=== PATIENT | female | born 1995 | race Caucasian/White ===

== ENCOUNTER → 2018-07-20 | Outpatient (CLI) | payer BC, OTHER ==
--- NOTE | 2018-07-20 10:09 | RAD ---
MR of the right hip Indication: RIGHT HIP PAIN WORSENING OVER LAST 6 MONTHS, BURNING SENSATIONS RADIATING ANTERIORLY, NKI, NO SX HX, NO PRIORS. Technique: Standard multiplanar sequences are obtained. FINDINGS: Artifact: No significant image degradation. Bones: Well-defined bone lesion at the lateral femoral neck, along the cortical surface, measures 18 mm x 8 mm x 11 mm. Margins are well-defined a slightly irregular. Consists of mostly hyperintense T2 signal, and hypointense T1 signal. The overlying cortex appears intact. There is another hypointense lesion, just below the lesser trochanter and along the anteromedial cortex, likely a fibrous cortical defect. Effusion: No significant effusion Joint: No advanced primary osteoarthritis. Labrum: No evidence of labral tear or para labral cyst Gluteus minimus tendon: Intact Gluteus medius tendon: Intact Hamstring tendon: Intact Iliopsoas tendon: Intact Rectus femoris tendon attachment:Intact Soft tissue:No significant acute findings. IMPRESSION: 1. Subcortical bone lesion at the lateral right femoral neck, uncertain significance, but likely unrelated to clinical presentation. This does not demonstrate the typical morphology of the cyst. Solid lesion such as fibrous dysplasia is possible. Enchondroma considered less likely. Given its uncertain nature, recommend correlation with radiographs and follow-up MRI in about 6 months. 2. No acute findings Electronically signed by: Ashu Cohen MD (07/20/2018 10:05 AM) [facility]
== END | disposition home or self-care (01) ==
LOC: MRI 09:35
PROVIDERS: ATTEND Internal Medicine
DX: M25.851 Other specified joint disorders, right hip (principal)
CPT/HCPCS: 73721

== ENCOUNTER → 2018-12-23 | Outpatient (CLI) | payer BC, OTHER ==
[~2018-12-23] MED LIST: ACET650S PO; AMLO5TAB10 JT; AMLODIPINE; DULO30CA2 JT; DULOXETINE; ETON1VAG VG; FEBU40TA JT; GABA300C18 JT; GABAPENTIN 250 MG/5 ML; HYDR10SY16 JT; HYDR200T5 JT; HYDROXYCHLOROQUINE; LACT1CAP21 PO; LINZESS 290 MCG; LINZESS290 MCG PO; MULT9LIQ10 PO; PANT20TA2 JT; PANTOPRAZOLE; PROM6.257 PO; PYRI60SY PO; SENN176S3 PO; ULORIC
[2018-12-23 14:07] LABS: BASO % 1 % (0-3); EOS # 0.1 x10^3/uL (0.0-0.7); EOS % 2 % (0-3); HEMATOCRIT 42.2 % (36.0-47.0); HEMOGLOBIN 14.6 g/dL (12.0-15.5); LYMPH # 1.6 x10^3/uL (1.0-4.8); LYMPH % 28 % (24-48); MEAN CORPUSCULAR HEMOGLOBIN 31 pg (25-35); MEAN CORPUSCULAR HGB CONC 35 g/dL (31-37); MEAN CORPUSCULAR VOLUME 88 fL (79-100); MONO # 0.5 x10^3/uL (0.0-1.1); MONO % 9 % (0-9); NEUT # 3.6 x10^3uL (1.8-7.7); NEUT % 61 % (31-73); PLATELET COUNT 302 x10^3/uL (140-400); RED BLOOD COUNT 4.78 x10^6/uL (3.50-5.40); RED CELL DISTRIBUTION WIDTH 12.5 % (11.5-14.5); WHITE BLOOD COUNT 5.8 x10^3/uL (4.0-11.0)
--- NOTE | 2018-12-26 10:21 | NUR ---
FAXED PRE-OP LAB(CBC/DIFF) TO 'S OFFICE FOR REVIEW AT 7922 12/26/2018 AN D RECEIVED TRANSMITTAL CONFIRMATION.
== END | disposition home or self-care (01) ==
LOC: SURGPAT 13:35
PROVIDERS: ATTEND Obstetrics & Gynecology
DX: Z01.818 Encounter for other preprocedural examination (principal)
CPT/HCPCS: 36415; 85025

== ENCOUNTER 2018-12-28 06:10 | Observation (INO) | payer BC, OTHER ==
[2018-12-28] VITALS (10 sets, daily range): BP systolic 116–137; BP diastolic 56–77
[~2018-12-28 06:10] MED LIST changes: +AZTREONAM IV Push 1 GM VIAL. IVP PRN; +BUPIVACAINE-EPI 0.25%-1:200000 MPF 30 ML VIAL. ONE; +CLINDAMYCIN 900MG PREMIX 50 ML IV PRN; +ESTROGENS, CONJ VAGINAL CREAM 30GM TUBE. ONE
[2018-12-28 06:44] LABS: U PREG PATIENT NEGATIVE (NEG)
[2018-12-28] MEDS ORDERED: fentaNYL PF VIAL 100 MCG/2 ML VIAL IV PRN ×4 (07:00)
[2018-12-28] MEDS ORDERED: LIDOCAINE 1% PF 2 ML VIAL. ID PRN ×2 (07:00)
[2018-12-28] MEDS ORDERED: PROCHLORPERAZINE 10 MG/2 ML VIAL. IV PRN ×2 (07:00)
[2018-12-28] MEDS ORDERED: IV RINGERS,LACTATED 1000ML 1,000 ML IV SCH (07:00)
[2018-12-28] MEDS ORDERED: MORPHINE SULFATE 2 MG/ML VIAL. IV PRN ×2 (07:00)
[2018-12-28] MEDS ORDERED: HYDROmorphone 2 MG/ML VIAL IV PRN ×2 (07:00)
[2018-12-28] MEDS ORDERED: ONDANSETRON PF 4 MG/2 ML VIAL. IV PRN ×2 (07:00)
[2018-12-28] MEDS: IV RINGERS,LACTATED 1000ML 1,000 ML IV SCH ×2 (07:05→10:22)
[2018-12-28] MEDS ORDERED: ONDANSETRON PF 4 MG/2 ML VIAL. ONE (07:13)
[2018-12-28] MEDS ORDERED: DEXAMETHASONE SOD PHOS 4 MG/ML VIAL ONE (07:13)
[2018-12-28] MEDS ORDERED: PROPOFOL 20 ML IV ONE (07:13)
[2018-12-28] MEDS ORDERED: MIDAZOLAM HCL/PF 2 MG/2 ML VIAL. ONE (07:13)
[2018-12-28] MEDS ORDERED: LIDOCAINE 2% PF 5 ML VIAL. ONE (07:13)
[2018-12-28] MEDS ORDERED: ROCURONIUM 50 MG/5 ML VIAL. ONE ×2 (07:13→08:05)
[2018-12-28] MEDS ORDERED: fentaNYL PF VIAL 100 MCG/2 ML VIAL ONE ×2 (07:13→08:53)
[2018-12-28] MEDS ORDERED: GLYCOPYRROLATE 1 MG/5 ML VIAL. ONE (08:37)
[2018-12-28] MEDS ORDERED: NEOSTIGMINE METHYLSULFATE 5 MG/5 ML SYRINGE. ONE (08:37)
[2018-12-28] MEDS ORDERED: SEVOFLURANE 61 TO 120 MINUTES. IH ONE (09:24)
[2018-12-28] MEDS ORDERED: KETOROLAC 30 MG/ML INJ FOR OR. INJ ONE (09:31)
[2018-12-28] MEDS ORDERED: SIMETHICONE 80 MG TAB.CHEW PO PRN (09:45)
[2018-12-28] MEDS ORDERED: ZOLPIDEM 5 MG TABLET. PO PRN (09:45)
[2018-12-28] MEDS ORDERED: diphenhydrAMINE HCL 25 MG CAPSULE PO PRN (09:45)
[2018-12-28] MEDS ORDERED: diphenhydrAMINE 50 MG/ML VIAL IV PRN (09:45)
[2018-12-28] MEDS ORDERED: LACTULOSE 20 GM/30 ML SOLUTION. PO PRN (09:45)
[2018-12-28] MEDS ORDERED: NALOXONE 0.4 MG/ML VIAL. IV PRN (09:45)
[2018-12-28] MEDS ORDERED: MAGNESIUM HYDROXIDE 2,400 MG/30 ML ORAL.SUSP. PO PRN (09:45)
[2018-12-28] MEDS ORDERED: MAG HYDROX/ALUMINUM HYD/SIMETH 30 ML ORAL.SUSP PO PRN (09:45)
[2018-12-28] MEDS ORDERED: HYDROcodon/APAP 7.5/325MG ORAL 15 ML SOLUTION PO PRN (09:45)
[2018-12-28] MEDS ORDERED: CALCIUM CARBONATE 500 MG TAB.CHEW PO PRN (09:45)
[2018-12-28] MEDS ORDERED: 0.9 % SODIUM CHLORIDE 10 ML DISP.SYRIN. IV PRN (09:45)
--- NOTE | 2018-12-28 09:50 | PDOC ---
BRIEF OPERATIVE NOTE Date: Dec 28, 2018 Pre-Op Diagnosis menorrhagia, DUB Post-Op Diagnosis same Procedure Performed LAVH, bilateral salpingectomy Surgeon Dr. Trinidad Ramey Billboard Mechanic Lencho Gage SA Anesthesiologist Dr. Bergeron Anesthesia Type: General Blood Loss 100cc IV Fluid 800cc Urine Output 100cc Specimens Obtained cervix, uterus, bilateral tubes Findings small uterus, normal bilateral tubes and ovaries, no significant adhesive disease Complications none Operative Note [id number] TRINIDAD RAMEY MD Dec 28, 2018 09:50
[2018-12-28] MEDS: hydrOXYzine 10 MG TABLET JT SCH ×2 (10:00→21:00)
[2018-12-28] MEDS ORDERED: amLODIPine BESYLATE 5 MG TABLET JT SCH (10:00)
[2018-12-28] MEDS ORDERED: FEBUXOSTAT 40 MG TABLET JT SCH (10:00)
[2018-12-28] MEDS ORDERED: LANSOPRAZOLE 30 MG TAB.RAP.DR JT SCH (10:00)
[2018-12-28] MEDS ORDERED: DULoxetine HCL 30 MG CAPSULE.DR PO SCH (10:00)
[2018-12-28] MEDS: PYRIDOSTIGMINE BROMIDE 60 MG TABLET PO SCH ×2 (10:00→20:54)
[2018-12-28] MEDS: GABAPENTIN 250 MG/5 ML ORAL SOLUTION. PO SCH ×2 (10:00→20:54)
[2018-12-28] MEDS: MORPHINE SULFATE 2 MG/ML VIAL. IV PRN ×3 (12:00→15:58)
--- NOTE | 2018-12-28 12:21 | OP ---
DATE OF SURGERY: 12/28/2018 PREOPERATIVE DIAGNOSES: Menorrhagia and dysfunctional uterine bleeding. POSTOPERATIVE DIAGNOSES: Menorrhagia and dysfunctional uterine bleeding. PROCEDURE: Laparoscopic-assisted vaginal hysterectomy, bilateral salpingectomy. SURGEON: Carlos Soni M.D. SHOE CEMENTER: Franics Gage, assembler surgical garment. ANESTHESIOLOGIST: Dr. Bergeron. ANESTHESIA: General. ESTIMATED BLOOD LOSS: 100 mL. URINE OUTPUT: 100 mL clear via Brown catheter. FLUIDS: 800 mL of Crystalloid. SPECIMENS: Cervix, uterus, bilateral tubes. FINDINGS: A small uterus with normal bilateral tubes and ovaries. No significant adhesive disease. DESCRIPTION OF PROCEDURE: This patient was taken to the operating room where general anesthesia was placed. The patient was placed in a dorsal lithotomy position in [facility]. The patient's abdomen and vagina were prepped and draped in the normal sterile fashion and a Brown catheter had been inserted under sterile technique. Upon my arrival, a timeout was performed where everyone agreed on the patient, the allergy, the procedures, the antibiotics, etc., and at this point a bivalve speculum was placed in the patient's vagina. A single tooth tenaculum was used to grasp the anterior lip of the cervix. A 10 mL of 0.25% Marcaine with epinephrine was used to circumferentially inject around the cervix for both hemodissection and hemostatic purposes later. At this point, the ValtchAudibase uterine manipulator was placed through the endocervical os, locked on the single tooth tenaculum and the bivalve speculum was then removed. Top gloves were discarded and changed. Attention was then turned to the abdomen where a small infraumbilical skin incision was made over the existing scar. A curved Temitope was used to dissect through the subcuticular layer to the fascia. The 5 mm Visiport was used to directly enter the abdominal cavity. Opening patient pressure was 4 mmHg. Carbon dioxide gas was used to then appropriately insufflate the abdominal cavity to maintain a pressure of 15 mmHg. The patient was placed in Trendelenburg position with the above findings. The left lower quadrant port was placed under direct visualization after transilluminating the abdominal wall, finding an area clear of any vasculature and placing it under direct visualization. A 4-5 mL of air was placed in the cuff to hold it into place. The scope was then moved to look at the umbilical port. It was then in clear, so 4-5 mL of air was placed in the cuff as well on the trocar. Then the right lower quadrant port was placed under a similar fashion. Once this was done, the right tube and ovary were elevated going above the ovary, below the tube, doing a salpingectomy, cauterizing and cutting with the LigaSure, then crossing the right uteroovarian pedicle, leaving the right ovary per patient request, crossing the right round ligament. Then, we did the exact same thing on the left, elevating the left tube and ovary, going above the ovary, below the tube, doing a salpingectomy, cauterizing and cutting with the LigaSure, crossing the left round ligament and the left uterine ovarian pedicle, again leaving the left ovary per patient request. Then going down and taking a bite just in front of the round ligament and starting that bladder flap and it peeled down very nicely, and then going from the right side, taking another bite and meeting it anteriorly. Once the bladder was down, the uterine vessels were obtained on both sides and using the LigaSure to hug the cervix and stay on the uterus, going down to the level of the uterosacrals bilaterally. We were down very low. Knowing how narrow and tight she was from putting the vaginal instruments in, it was decided to do as much from above as we could. It was completely free and blanched. So, all instruments were removed from the abdomen and attention was turned vaginally. The single tooth and Valtchev were removed. The weighted speculum would not even fit as wide as it was in the vagina, so we used the long Shaji speculum, but just held it in because it was more narrow and then was able to get the [place] in above and on the side. Thyroid Yeni clamps were placed on the anterior and posterior lips of the cervix respectively. A scalpel was used to make a circumferential incision. An open Ray-Kirstin 4 x 4 was used to gently push up the anterior bladder peritoneum. We were down so low, once I was in and could feel around, there was no attachment. The cervix and uterus were actually delivered with no bites vaginally. A sponge stick was used to try to examine any pedicles. There was minimal bleeding. So, I did use a full length 2-0 Vicryl and I was not able to get the top of the bladder flap, but I was able to get just inside and I got the left and right uterosacrals and the posterior peritoneum, closing the peritoneum in a pursestring like fashion. Then, a full length 2-0 Vicryl was used to close the cuff. The left side actually did tear a little bit and there was a left sidewall tear, so a few interrupted stitches were placed there with excellent results and then I put an imbricating stitch over the top of the vagina to pull it back together. The tissue was actually friable and not great due to her connective tissue disease, but we were able to close it and minimal bleeding. The tubes were actually removed above on both sides, manipulating the uterus, but those were both pulled out in total. So, I did a LAVH with bilateral salpingectomy, both normal ovaries were left. So at this point, once everything was closed vaginally, all instruments were removed. Counts below were correct x 2. All gloves were discarded and changed. Attention was turned back above where she was placed back in Trendelenburg. Gas was reinsufflated and it was completely hemostatic. Copious irrigation revealed hemostasis, right and left pericolic gutters were clear, the vaginal cuff was dry. Tisseel was placed over the pedicles with excellent results. The right and left lower quadrant ports, the gas was released from the trocar cuff and they were removed under direct visualization and were hemostatic. Gas was released from the umbilical port, it too then was. The gas was released from the cuff and removed. All three port sites were closed with 4-0 nylon at the skin and injected with local. The patient has been awakened from anesthesia and brought to recovery room in stable condition. CARLOS SONI MD DR: ISABEL/issa JOB#: [id number] / [id number]
[2018-12-28] MEDS: oxyCODONE/APAP 5/325 1 TAB TABLET PO PRN ×3 (17:04→22:41)
--- NOTE | 2018-12-28 17:10 | NUR ---
Nursing Note: As ordered by Dr. Soni, Pt. started J tube duel pump feeding of Promote 1.0 jean at a rate of 45 ml/hr and Pedialyte 60ml/hr.
[2018-12-28] MEDS: ONDANSETRON PF 4 MG/2 ML VIAL. IV PRN (18:48)
--- NOTE | 2018-12-28 21:06 | NUR ---
Patient's mother brought in her home meds and administered them via her J-Tube. As many are not available here they are compounded medications from a special pharmacy. Dr. Soni is aware.
[2018-12-29] MEDS: ONDANSETRON PF 4 MG/2 ML VIAL. IV PRN (01:37)
[2018-12-29 01:43] VITALS: BP 134/78
[2018-12-29] MEDS: HYDROcodone/APAP 5/325MG 1 TAB TABLET PO PRN ×3 (02:51→11:05)
[2018-12-29] MEDS: hydrOXYzine 10 MG TABLET JT SCH (05:40)
[2018-12-29 06:36] VITALS: BP 137/78
[2018-12-29 07:05] LABS: CALCIUM 8.4 mg/dL (8.5-10.1); CREATININE 0.8 mg/dL (0.6-1.0); GFR 89.7
--- NOTE | 2018-12-29 08:17 | PDOC ---
SURGICAL PROGRESS NOTE Subjective Doing well, voiding without catheter, getting JT fluids, tolerating PO hydration, ambulating well Vital Signs Vital Signs Date Time Temp Pulse Resp B/P (MAP) Pulse Ox O2 Delivery O2 Flow Rate FiO2 12/29/18 06:36 97.7 97 137/78 (97) 97 Room Air 97.7 12/29/18 02:51 14 12/28/18 11:07 2 I&O Intake and Output 12/29/18 07:00 Intake Total 2225 ml Output Total 3100 ml Balance -875 ml Intake Oral 1050 ml IV Total 1050 ml Tube Feeding 10 ml Other 115 ml Output Urine Total 3000 ml Estimated Blood Loss 100 ml # Voids 3 PATIENT HAS A FERRO: No General: Alert, Oriented X3, Cooperative, No acute distress HEENT: Atraumatic Heart: Regular rate Abdomen: Soft, No tenderness, Other (all port sites C/D/I) Extremities: No clubbing, No cyanosis, No edema Skin: No rashes, No breakdown Neuro: Normal speech Psych/Mental Status: Mental status NL, Mood NL Labs Laboratory Tests Test 12/28/18 06:35 12/29/18 06:00 Urine Test Negative (NEG) Hematocrit 36.5 % (36.0-47.0) Sodium Level 137 mmol/L (136-145) Potassium Level 4.0 mmol/L (3.5-5.1) Chloride Level 104 mmol/L (98-107) Carbon Dioxide Level 25 mmol/L (21-32) Anion Gap 8 (6-14) Blood Urea Nitrogen 10 mg/dL (7-20) Creatinine 0.8 mg/dL (0.6-1.0) Estimated GFR (Cockcroft-Gault) 89.7 Glucose Level 113 mg/dL (70-99) Calcium Level 8.4 mg/dL (8.5-10.1) Laboratory Tests Test 12/29/18 06:00 Hematocrit 36.5 % (36.0-47.0) Sodium Level 137 mmol/L (136-145) Potassium Level 4.0 mmol/L (3.5-5.1) Chloride Level 104 mmol/L (98-107) Carbon Dioxide Level 25 mmol/L (21-32) Anion Gap 8 (6-14) Blood Urea Nitrogen 10 mg/dL (7-20) Creatinine 0.8 mg/dL (0.6-1.0) Estimated GFR (Cockcroft-Gault) 89.7 Glucose Level 113 mg/dL (70-99) Calcium Level 8.4 mg/dL (8.5-10.1) I have reviewed the following labs, vitals, nursing GI: Other (severe gastroparesis) Musculoskeletal: Other (fibromyalgia and connective tissue disease) 0 Para o Problem List please see list Assessment/Plan POD#1 s/p LAVH/bilateral salpingectomy Routine PO care pt on multiple meds with JT tube, but stable doing well Hydrocodone elixer written and pt has at home NPV x 6 weeks light/limited activity x 2 weeks keep scheduled follow up with me as scheduled d/c to home call or return sooner for any other questions or concerns not limited to but in cluding pain unrelieved with pain meds, increased or unexplained vag bleeding or T>100.4 CARLOS RAMEY MD Dec 29, 2018 08:17
--- NOTE | 2018-12-29 08:18 | PDOC3 ---
Discharge Summary Visit Information Date of Admission: Dec 28, 2018 Date of Discharge: Dec 29, 2018 Final Diagnosis DUB, menorrhagia Brief Hospital Course Allergies Allergies Coded Allergies Type Severity Reaction Last Updated Verified domperidone Allergy Severe Unknown 12/28/18 Yes adhesive tape Allergy Intermediate rash 12/28/18 Yes amoxicillin Allergy Intermediate hives 12/28/18 Yes cefdinir Allergy Intermediate rash 12/28/18 Yes cephalexin Allergy Intermediate hives 12/28/18 Yes ciprofloxacin Allergy Intermediate hives 12/28/18 Yes clavulanic acid Allergy Intermediate Palpitations 12/28/18 Yes erythromycin base Allergy Intermediate 12/28/18 Yes Vital Signs Vital Signs Date Time Temp Pulse Resp B/P (MAP) Pulse Ox O2 Delivery O2 Flow Rate FiO2 12/29/18 06:36 97.7 97 137/78 (97) 97 Room Air 97.7 12/29/18 02:51 14 12/28/18 11:07 2 Lab Results Laboratory Tests Test 12/28/18 06:35 12/29/18 06:00 Urine Test Negative (NEG) Hematocrit 36.5 % (36.0-47.0) Sodium Level 137 mmol/L (136-145) Potassium Level 4.0 mmol/L (3.5-5.1) Chloride Level 104 mmol/L (98-107) Carbon Dioxide Level 25 mmol/L (21-32) Anion Gap 8 (6-14) Blood Urea Nitrogen 10 mg/dL (7-20) Creatinine 0.8 mg/dL (0.6-1.0) Estimated GFR (Cockcroft-Gault) 89.7 Glucose Level 113 mg/dL (70-99) Calcium Level 8.4 mg/dL (8.5-10.1) Laboratory Tests Test 12/29/18 06:00 Hematocrit 36.5 % (36.0-47.0) Sodium Level 137 mmol/L (136-145) Potassium Level 4.0 mmol/L (3.5-5.1) Chloride Level 104 mmol/L (98-107) Carbon Dioxide Level 25 mmol/L (21-32) Anion Gap 8 (6-14) Blood Urea Nitrogen 10 mg/dL (7-20) Creatinine 0.8 mg/dL (0.6-1.0) Estimated GFR (Cockcroft-Gault) 89.7 Glucose Level 113 mg/dL (70-99) Calcium Level 8.4 mg/dL (8.5-10.1) Brief Hospital Course Ms. Martinez is a 23 old female who presented with DUB unresponsive to medical management. She underwent LAVH with bilateral salpingectomy yesterday without complications. She is voiding without catheter, tolerating sips of PO (her baseline with JT tube) and desiring to go home with scant vag spotting Discharge Information Condition at Discharge: Stable Follow Up: Weeks Disposition/Orders: D/C to Home Scheduled Amlodipine Besylate (Amlodipine Besylate) 5 Mg Tablet, 7.5 MG JT DAILY for HTN, (Reported) Entered as Reported by: SOPHIA BLAND on 12/23/181456 Last Taken: Unknown Dose on 12/28/18429 Last Action: Continued on 12/28/18745 by CARLOS RAMEY Duloxetine Hcl (Cymbalta) 30 Mg Capsule.dr, 45 ML JT DAILY for DEPRESSION, #30 Ref 5 (Reported) Entered as Reported by: SOPHIA BLAND on 12/23/181458 Last Taken: Unknown Dose on 12/27/18 Last Action: Continued on 12/28/18745 by CARLOS RAMEY Etonogestrel/Ethinyl Estradiol (Nuvaring Vaginal Ring) 1 Each Vag.ring, 1 EACH VG QMONTH for UTERINE BLEEDING, #3 Ref 3 (Reported) Entered as Reported by: SOPHIA BLAND on 12/23/18 145 Last Action: HELD on 12/28/18745 by CARLOS RAMEY Febuxostat (Uloric) 40 Mg Tablet, 40 ML JT DAILY for URIC ACID LEVELS, #90 Ref 1 (Reported) Entered as Reported by: SOPHIA BLAND on 12/23/18 150 Last Taken: Unknown Dose on 12/27/18 Last Action: Continued on 12/28/18745 by CARLOS RAMEY Gabapentin (Gabapentin ) 300 Mg Capsule, 250 MG JT BID for NEUROGENIC PAIN, (Reported) Entered as Reported by: SOPHIA BLAND on 12/23/18 1502 Last Taken: Unknown Dose on 12/28/180 Last Action: Continued on 12/28/18745 by CARLOS RAMEY Hydroxychloroquine Sulfate (Hydroxychloroquine Sulfate) 200 Mg Tablet, 8 ML JT BID for *, #180 Ref 1 (Reported) Entered as Reported by: SOPHIA BLAND on 12/23/18 1507 Last Taken: Unknown Dose on 12/27/18 Last Action: HELD on 12/28/18745 by CARLOS RAMEY Hydroxyzine Hcl (Hydroxyzine Hcl) 10 Mg/5 Ml Syrup, 7.5 ML JT BID for *, #120 Ref 3 (Reported) Entered as Reported by: SOPHIA BLAND on 12/23/18 1502 Last Taken: Unknown Dose on 12/27/18 Last Action: Converted on 12/28/18745 by CARLOS RAMEY Lactobacillus Rhamnosus Gg (Culturelle) 1 Each Capsule, 1 EACH PO DAILY for DIARRHEA/CONSTIPATION, (Reported) Entered as Reported by: SOPHIA BLAND on 12/23/18 145 Last Taken: Unknown Dose on 12/27/18 Last Action: HELD on 12/28/18745 by CARLOS RAMEY Linaclotide (Linzess) 290 Mcg Capsule, 290 MCG PO DAILY07 for IRRITABLE BOWEL, (Reported) Entered as Reported by: SOPHIA BLAND on 12/23/18 150 Last Taken: Unknown Dose on 12/27/18 Last Action: HELD on 12/28/18745 by CARLOS RAMEY Multivits W-Min/Ferrous Gluc (Centrum Multivit-Mineral Liq) 9 Mg/15 Ml Liquid, 9 MG PO DAILY for SUPPLEMENT, (Reported) Entered as Reported by: SOPHIA BLAND on 12/23/18 145 Last Taken: Unknown Dose on 11/23/18 Last Action: HELD on 12/28/18745 by CARLOS RAMEY Pantoprazole Sodium (Protonix) 20 Mg Tablet.dr, 24.5 ML JT DAILY for REFLUX, (Reported) Entered as Reported by: SOPHIA BLAND on 12/23/18 1504 Last Taken: Unknown Dose on 12/28/18429 Last Action: Converted on 12/28/18745 by CARLOS RAMEY Promethazine Hcl (Promethazine Hcl) 6.25 Mg/5 Ml Syrup, 5 ML PO TID for NAUSEA, #150 (Reported) Entered as Reported by: SOPHIA BLAND on 12/23/18 145 Last Taken: Unknown Dose on 12/28/18429 Last Action: HELD on 12/28/18745 by CARLOS RAMEY Pyridostigmine [place] (Mestinon) 60 Mg/5 Ml Syrup, 60 MG PO BID for *, (Reported) Entered as Reported by: SOPHIA BLAND on 12/23/181453 Last Taken: Unknown Dose on 12/28/18 0430 Last Action: Converted on 12/28/18745 by CARLOS RAMEY Senna [place] Extract (Senna) 176 Mg/5 Ml Syrup, 176 MG PO DAILY for CONSTIPATION, (Reported) Entered as Reported by: SOPHIA BLAND on 12/23/181453 Last Taken: Unknown Dose on 12/27/18 Last Action: HELD on 12/28/18745 by CARLOS RAMEY Scheduled PRN Acetaminophen (Acetaminophen Oral Liquid ) 650 Mg/20.3 Ml Solution, 650 MG PO PRN Q6HRS PRN for PAIN, (Reported) Entered as Reported by: SOPHIA BLAND on 12/23/181453 Last Taken: Unknown Dose on 11/23/18 Last Action: HELD on 12/28/18745 by CARLOS RAMEY Patient Instructions Patient Instructions POD#1 s/p LAVH/bilateral salpingectomy Routine PO care pt on multiple meds with JT tube, but stable doing well Hydrocodone elixer written and pt has at home NPV x 6 weeks light/limited activity x 2 weeks keep scheduled follow up with me as scheduled d/c to home call or return sooner for any other questions or concerns not limited to but including pain unrelieved with pain meds, increased or unexplained vag bleeding or T>100.4 CARLOS RAMEY MD Dec 29, 2018 08:18
[2018-12-29 10:00] VITALS: BP 138/71
[2018-12-29] MEDS ORDERED: HEPARIN PF 500 UNIT/5 ML DISP.SYRIN. IV ONE (21:00)
--- NOTE | 2018-12-30 17:07 | PATHOLOGY ---
[facility] Accession Number: [id number] . 01 Material submitted: . uterus - UTERUS, CERVIX, BILATERAL FALLOPIAN TUBES . 01 Clinical history: . Dysfunctional uterine bleeding . 02 Diagnosis: Uterus and separate detached bilateral fallopian tubes, laparoscopic assisted vaginal hysterectomy with bilateral salpingectomy: - Adenomyosis, uterine corpus, sub-basal, focal. - Stromal decidual change of endometrium with inactive and atrophic endometrial glands, consistent with progesterone effect. - Congestion of bilateral fallopian tubes. LBQ/12/30/2018 . 02 Comment: There is no evidence of endometrial hyperplasia. There is no atypia or evidence of malignancy. (JPM/db; 12/30/2018) . 02 Electronically signed: . Florentino Doherty MD, Pathologist NPI- [id number] . 01 Gross description: . The specimen is received in formalin, labeled "Cherelle Martinez, uterus, cervix, bilateral fallopian tubes" and consists of a 40 g uterus with attached cervix measuring 7.7 x 3.8 x 2.8 cm. Received separately are bilateral fimbriated fallopian tubes measuring 4.0 cm in length and 0.5 cm in diameter and 6.8 cm in length and up to 0.5 cm in diameter. The uterine serosa is pink-alves and smooth with multifocal areas of hemorrhage. The 0.6 cm cervical os is surrounded by hemorrhagic and irregular pink-alves ectocervical mucosa. The anterior paracervical margin is inked black. The specimen is bivalved to reveal a mucoid and corrugated endocervical canal measuring up to 3.3 cm in length. The endometrial cavity is triangular measuring 3.6 cm in length and 2.5 cm in width which is lined by a pink-red endometrium measuring 0.1 cm. The myometrium is pink-alves measuring up to 1.5 cm with no masses or lesions. The bilateral fimbriated fallopian tubes are purple-hennessy and smooth with sectioning each revealing a well-defined central lumens and no gross lesions. Nurse Sane sections are submitted as follows: . A1: Anterior cervix A2: Posterior cervix A3: Anterior endomyometrium A4: Posterior endomyometrium A5: [place] detached fallopian tube A6: Longer detached fallopian tube (SDY; 12/29/2018) SYU/SYU . 02 Pathologist provided ICD-10: N80.0 . 02 CPT . 249015 Specimen Comment: A courtesy copy of this report has been sent to Specimen Comment: [phone], . Specimen Comment: Report sent to / DR NAIK Performed at: 01 [facility] [address] [id number] MD Destin Nicole MD Phone: [phone] Performed at: 02 [facility] [address] [place], [place] [id number] MD Florentino Doherty MD Phone: [phone]
== END 2018-12-29 11:30 | disposition home or self-care (01) ==
LOC: SURG 06:10 → 3 NORTH 09:37
PROVIDERS: ADMIT Obstetrics & Gynecology; ATTEND Obstetrics & Gynecology
DX: N92.0 Excessive and frequent menstruation with regular cycle (principal); N93.8 Other specified abnormal uterine and vaginal bleeding; N94.6 Dysmenorrhea, unspecified
CPT/HCPCS: 36415; 58552; 80048; 81025; 85014; 86850; 86900; 86901; 96374; 96375; 96376; G0378; G0379; J0780; J1100; J1885; J2001; J2250; J2270; J2405; J2704; J2710; J3010; J3490; J7030; J7120

== ENCOUNTER → 2019-06-02 | Outpatient (CLI) | payer BC, MEDICAID ==
[~2019-06-02] MED LIST changes: -AZTREONAM IV Push 1 GM VIAL. IVP PRN; -BUPIVACAINE-EPI 0.25%-1:200000 MPF 30 ML VIAL. ONE; -CLINDAMYCIN 900MG PREMIX 50 ML IV PRN; -ESTROGENS, CONJ VAGINAL CREAM 30GM TUBE. ONE
--- NOTE | 2019-06-02 15:09 | KCIC ---
MR of the right hip HISTORY: Follow-up right hip bone lesion. Chronic right hip pain. COMPARISON: MRI 07/20/2018. No prior radiographs. FINDINGS: Bone lesion at the subcortical lateral right femoral neck is again identified measures 18 mm x 8 mm x 11 mm, no significant change since prior study. Morphology is the same as is internal signal on T1-weighted and T2-weighted images. Small hypointense subcortical bone lesion at the anterior femur at the level of the lesser trochanter likely a small enough stenosis or bone island, unchanged. No acute marrow edema, aggressive bone destruction or femoral head osteonecrosis. No evidence of acute fracture. No significant joint effusion. No evidence of labral tear or para labral cyst. Hamstring, gluteus minimus, gluteus medius, rectus femoris and iliopsoas tendon attachments are intact. Small multiseptated cystic-type lesion in the left anterior pelvis presumably the left ovary with small follicles. Small inguinal and iliac lymph nodes are seen, similar to prior study. Large [id number] coronal survey sequence demonstrates no acute findings at the contralateral hip. IMPRESSION: 1. Eccentric nonspecific bone lesion at the right lateral femoral neck is unchanged in size and appearance since the prior study, further favoring a nonaggressive nature. 2. No acute findings at the right hip. Electronically signed by: Ashu Cohen MD (06/02/2019 3:06 PM) [facility]
== END | disposition home or self-care (01) ==
LOC: KCIC MRI 12:01
PROVIDERS: ATTEND Internal Medicine
DX: R19.07 Generalized intra-abdominal and pelvic swelling, mass and lump (principal); G89.29 Other chronic pain; M89.9 Disorder of bone, unspecified; Z90.710 Acquired absence of both cervix and uterus
CPT/HCPCS: 73721

== ENCOUNTER 2020-07-15 08:21 | Outpatient (CLI) | payer BC, MEDICAID ==
[~2020-07-15] VITALS: Ht 162.6 cm; Wt 83.0 kg
[2020-07-15] VITALS (7 sets, daily range): BP systolic 96–126; BP diastolic 51–60
[~2020-07-15 08:21] MED LIST changes: +AMLO-186 JT; -AMLO5TAB10 JT
[2020-07-15] MEDS ORDERED: BUSP15TA PO (09:15)
[2020-07-15] MEDS ORDERED: OXYC10TA PO (09:15)
[2020-07-15] MEDS ORDERED: OLAN5TAB7 PO (09:15)
[2020-07-15] MEDS ORDERED: LIDOCAINE WITH 8.4% SOD BICARB 3 ML DISP.SYRIN. ONE (09:19)
[2020-07-15] MEDS ORDERED: IOHEXOL 240 MG/ML 50ML VIAL. ONE (09:20)
[2020-07-15] MEDS ORDERED: fentaNYL PF VIAL 100 MCG/2 ML VIAL ONE (09:40)
[2020-07-15] MEDS ORDERED: MIDAZOLAM HCL/PF 5 MG/5 ML VIAL. ONE (09:40)
[2020-07-15] MEDS ORDERED: fentaNYL PF VIAL 100 MCG/2 ML VIAL IV ONE (10:00)
[2020-07-15] MEDS ORDERED: MIDAZOLAM HCL/PF 2 MG/2 ML VIAL. IV ONE (10:00)
[2020-07-15] MEDS ORDERED: IOHEXOL 300 MG/ML 50 ML VIAL. IART ONE (10:00)
[2020-07-15] MEDS ORDERED: LIDOCAINE WITH 8.4% SOD BICARB 3 ML DISP.SYRIN. IJ ONE (10:00)
[2020-07-15] MEDS ORDERED: HEPARIN PF 500 UNIT/5 ML DISP.SYRIN. IVP ONE (11:45)
--- NOTE | 2020-07-15 12:06 | NUR ---
redressed LLQ j-tube. pt has a small open wound next to the j-tube that was draining. pt's skin is very sensitive and red where the tape was. applied skin prep then duoderm in a square around sites to apply tape to. redressed sites. no new bleeding noted. d/c instructions given, questions answered. out to vehicle per w/c- family to drive her home
--- NOTE | 2020-07-15 15:19 | RAD ---
Fluoroscopically guided J-tube replacement 07/15/2020 1:13 PM . Clinical Indication: Malfunctioning jejunostomy tube Discussion: The procedure was explained in its entirety to the patient or the patients designated lead customer service representative by a member of the treatment team, including a discussion of the risks, benefits and commonly accepted alternatives to the procedure, as well as the expected consequences of no therapy whatsoever. Discussion of the risks included, but was not limited to, those that are most frequent and those that are rare but possibly severe or life-threatening, as well as the possibility of unforeseen complications. All elements of maximal sterile barrier technique including the use of a cap, mask, sterile gown, sterile gloves, large sterile sheet, appropriate hand hygiene, and 2% chlorhexidine for cutaneous antisepsis (or acceptable alternative antiseptic per current guidelines) were followed for this procedure. Total fluoroscopy time: 2.2 min Dose area product: 10 Gycm2 The procedures performed under conscious sedation including continuous cardiopulmonary monitoring via dedicated sedation nurse. Peac-ao-alrn sedation time: 25 minutes The pre-existing tube was evaluated under fluoroscopy and found to be in acceptable position. This was confirmed with administration of a small amount of iodinated contrast. Guidewire was advanced to the small bowel. The pre-existing tube was removed over the wire and replaced with a new 18 [place] J-tube. Tube position was confirmed with contrast administration. 2 cc of sterile water was put into the retention balloon catheter secured in place with a stitch. Sterile dressings were applied. No immediate complications were identified. Impression: Fluoroscopically guided J-tube placement.
== END 2020-07-15 11:58 | disposition home or self-care (01) ==
LOC: INTRAD 08:21
PROVIDERS: ATTEND Surgery
DX: K31.84 Gastroparesis (principal); K94.13 Enterostomy malfunction; E66.9 Obesity, unspecified; K21.9 Gastro-esophageal reflux disease without esophagitis; M10.9 Gout, unspecified; F41.9 Anxiety disorder, unspecified; F32.9 Major depressive disorder, single episode, unspecified; M06.9 Rheumatoid arthritis, unspecified; Z90.710 Acquired absence of both cervix and uterus; Z98.890 Other specified postprocedural states; Z79.899 Other long term (current) drug therapy; Z72.89 Other problems related to lifestyle; Z88.1 Allergy status to other antibiotic agents; Z88.8 Allergy status to other drugs, medicaments and biological substances
CPT/HCPCS: 49451; 99152; 99153; C1769; J1642; J2250; J3010; J3490; Q9967

== ENCOUNTER 2020-08-03 14:56 | Emergency (ER) | payer BC, MEDICAID ==
[~2020-08-03] VITALS: Ht 162.6 cm; Wt 65.0 kg
[~2020-08-03 14:56] MED LIST changes: +BUSP15TA PO; +OLAN5TAB7 PO; +OXYC10TA PO
[2020-08-03 15:45] VITALS: BP 103/70
[2020-08-03] MEDS ORDERED: HYDROmorphone 2 MG/ML VIAL IM ONE (15:45)
--- NOTE | 2020-08-03 15:50 | PHYS DOC ---
Past Medical History Smoking Status: Never Smoker General Adult EDM: Chief Complaint: OTHER COMPLAINTS HPI: HPI: Patient is a 24 year old female with multiple medical problems including autoimmune diseases and currently disabled who presents to the ED today complaining of J-tube pain. Mother states patient had a J-tube replaced on July 15, 2020 at [facility]. She states they put in 2 cc of fluid in the balloon but they typically put 1 cc of fluid and told her if it becomes uncomfortable mother can remove 1 cc of fluid from the balloon. Mother states patient has been complaining of stomach discomfort/pain rated as moderate for the last couple days. She states she is also noted some drainage around the tube. Mother denies patient having any fever. She states patient is currently on oxycodone and fentanyl patches with no pain relief. Review of Systems: Review of Systems: Constitutional: Denies fever or chills. [] Eyes: Denies change in visual acuity. [] HENT: Denies nasal congestion or sore throat. [] Respiratory: Denies cough or shortness of breath. [] Cardiovascular: Denies chest pain or edema. [] GI: Reports J-tube pain, denies nausea, vomiting, bloody stools or diarrhea. [] : Denies dysuria. [] Musculoskeletal: Denies back pain or joint pain. [] Integument: Denies rash. [] Neurologic: Denies headache, focal weakness or sensory changes. [] Psychiatric: Denies depression or anxiety. [] Heart Score: Risk Factors: Risk Factors: DM, Current or recent (<one month) smoker, HTN, HLP, family history of CAD, obesity. Risk Scores: Score 0 - 3: 2.5% MACE over next 6 weeks - Discharge Home Score 4 - 6: 20.3% MACE over next 6 weeks - Admit for Clinical Observation Score 7 - 10: 72.7% MACE over next 6 weeks - Early Invasive Strategies Current Medications: Current Medications Medications (Trade) Dose Ordered Sig/Carey Start Time Stop Time Status Last Admin Dose Admin Hydromorphone HCl (Dilaudid) 1 mg 1X ONCE 08/03/20 15:45 08/03/20 15:46 Allergies: Allergies: Allergies Coded Allergies Type Severity Reaction Last Updated Verified domperidone Allergy Severe Unknown 12/28/18 Yes adhesive tape Allergy Intermediate rash 12/28/18 Yes amoxicillin Allergy Intermediate hives 12/28/18 Yes cefdinir Allergy Intermediate rash 12/28/18 Yes cephalexin Allergy Intermediate hives 12/28/18 Yes ciprofloxacin Allergy Intermediate hives 12/28/18 Yes clavulanic acid Allergy Intermediate Palpitations 12/28/18 Yes erythromycin base Allergy Intermediate 12/28/18 Yes Physical Exam: PE: Constitutional: Well developed, well nourished, no acute distress, non-toxic appearance. [] HENT: Normocephalic, atraumatic, bilateral external ears normal, oropharynx moist, no oral exudates, nose normal. [] Eyes: PERRLA, EOMI, conjunctiva normal, no discharge. [] Neck: Normal range of motion, no tenderness, supple, no stridor. [] Cardiovascular:Heart rate regular rhythm, no murmur [] Lungs & Thorax: Bilateral breath sounds clear to auscultation [] Abdomen: Dressing noted mid abdomen that is clean and dry. We did not open this. Left abdomen BEVERLY tube noted. Trace amount of crusted drainage around the tube. Trace amount of redness around the tube. Bowel sounds normal, soft, no tenderness, no masses, no pulsatile masses. [] Skin: Warm, dry, no erythema, no rash. [] Back: No tenderness, no CVA tenderness. [] Extremities: No tenderness, no cyanosis, no clubbing, ROM intact, no edema. [] Neurologic: Alert and oriented X 3, normal motor function, normal sensory function, no focal deficits noted. [] Psychologic: Flat affect. Current Patient Data: Vital Signs: Vital Signs Date Time Temp Pulse Resp B/P (MAP) Pulse Ox O2 Delivery O2 Flow Rate FiO2 08/03/20 15:15 97.6 102 20 103/70 (81) 97 Room Air 97.6 EKG: EKG: [] Radiology/Procedures: Radiology/Procedures: []PATIENT: KIAN JOHNSON DACCOUNT: [id number]#: [id number] : 1995 LOCATION: ER AGE: 24 SEX: F EXAM STATUS: REG ER ORD. PHYSICIAN: SUKI VILLEGAS APRN REASON: feeding tube pain PROCEDURE: ABDOMEN SUPINE & UPRIGHT Supine and upright abdomen. HISTORY: Feeding tube pain Supine and upright views were taken of the abdomen. There is a tube on the left side of the abdomen probably jejunal tube. Exact positioning is difficult to determine but the pattern appears similar to the prior study. Small bowel pattern is normal. There are no abnormal air-fluid levels. IMPRESSION: 1. Tube noted in the left abdomen. 2. No bowel obstruction or other acute change. Electronically signed by: Jhonatan Forrester MD (08/03/2020 6:14 PM) [facility] DICTATED and SIGNED BY: JHONATAN FORRESTER MD DATE: 08/03/20 [id number] 0 Course & Med Decision Making: Course & Med Decision Making Pertinent Labs and Imaging studies reviewed. (See chart for details) This is a 24-year-old female patient presented to the ED today complaining of pain around J-tube and drainage around the J-tube. J-tube was replaced on July 15, 2020. Patient is currently on fentanyl patches and oxycodone with no relief to her pain. Patient's labs are negative for any acute findings. X-rays of the abdomen supine and upright were negative for any acute findings. I spoke to Dr. Stokes, he requested we manage patient's pain then she can go home but she has to stop the tube feeding for acouple days. Dilaudid was ordered. Patient's pain is under control. Discharged to home. Informed to stop the tube feeding which mother stated she had already stopped. [place] Disclaimer: [place] Disclaimer: This electronic medical record was generated, in whole or in part, using a voice recognition dictation system. Departure Departure Impression: Primary Impression: Uses feeding tube Additional Impression: Abdominal pain, LUQ Disposition: 01 DC HOME SELF CARE/HOMELESS Condition: STABLE Referrals: VIJI NAIK MD (PCP) FLY STOKES MD follow up next week Patient Instructions: Care of a Feeding Tube Site Additional Instructions: You were seen for abdominal pain. Please follow-up with Dr. Stokes, call the office on Wednesday and set up a follow-up appointment. Continue taking your pain medicine at home. SUKI VILLEGAS APRN Aug 03, 2020 15:50
[2020-08-03] MEDS ORDERED: IV NORMAL SALINE 1000ML BAG 1,000 ML IV ONE (16:45)
[2020-08-03] MEDS ORDERED: ONDANSETRON PF 4 MG/2 ML VIAL. IVP ONE (16:45)
[2020-08-03] MEDS: HYDROmorphone 2 MG/ML VIAL IV/SQ PRN ×2 (17:47→18:29)
[2020-08-03 17:58] LABS: BASO % 1 % (0-3); EOS # 0.1 x10^3/uL (0.0-0.7); EOS % 2 % (0-3); HEMOGLOBIN 12.1 g/dL (12.0-15.5); LYMPH # 1.6 x10^3/uL (1.0-4.8); LYMPH % 27 % (24-48); MEAN CORPUSCULAR HEMOGLOBIN 30 pg (25-35); MEAN CORPUSCULAR HGB CONC 35 g/dL (31-37); MEAN CORPUSCULAR VOLUME 85 fL (79-100); MONO # 0.6 x10^3/uL (0.0-1.1); MONO % 9 % (0-9); NEUT # 3.7 x10^3/uL (1.8-7.7); NEUT % 62 % (31-73); PLATELET COUNT 322 x10^3/uL (140-400); RED CELL DISTRIBUTION WIDTH 14.4 % (11.5-14.5); WHITE BLOOD COUNT 6.1 x10^3/uL (4.0-11.0)
[2020-08-03 18:19] LABS: CALCIUM 9.4 mg/dL (8.5-10.1); CREATININE 0.8 mg/dL (0.6-1.0); GFR 88.9; POTASSIUM 3.8 mmol/L (3.5-5.1)
--- NOTE | 2020-08-03 18:19 | RAD ---
Supine and upright abdomen. HISTORY: Feeding tube pain Supine and upright views were taken of the abdomen. There is a tube on the left side of the abdomen p robably jejunal tube. Exact positioning is difficult to determine but the pattern appears similar to the prior study. Small bowel pattern is normal. There are no abnormal air-fluid levels. IMPRESSION: 1. Tube noted in the left abdomen. 2. No bowel obstruction or other acute change. Electronically signed by: Jhonatan Forrester MD (08/03/2020 6:14 PM) [facility]
[2020-08-03 18:24] LABS: ALBUMIN 3.2 g/dL (3.4-5.0); ALBUMIN/GLOBULIN RATIO 0.8 (1.0-1.7); TOTAL BILIRUBIN 0.3 mg/dL (0.2-1.0); TOTAL PROTEIN 7.4 g/dL (6.4-8.2)
[2020-08-03 18:40] LABS: BILIRUBIN,URINE NEGATIVE (NEG); COLOR,URINE YELLOW; NITRITE,URINE NEGATIVE (NEG); PH,URINE 8.5 (<5.0-8.0); PROTEIN,URINE NEGATIVE (NEG-TRACE)
[2020-08-03 18:45] LABS: CLARITY,URINE CLEAR
[2020-08-03 18:46] LABS: BACTERIA,URINE FEW /HPF (0-FEW)
[2020-08-03 18:47] LABS: RBC,URINE 0 /HPF (0-2); WBC,URINE RARE /HPF (0-4)
== END 2020-08-03 19:05 | disposition home or self-care (01) ==
LOC: ER 14:56
DX: R10.12 Left upper quadrant pain (principal); Z93.4 Other artificial openings of gastrointestinal tract status; Z88.1 Allergy status to other antibiotic agents; Z88.8 Allergy status to other drugs, medicaments and biological substances
CPT/HCPCS: 36415; 74021; 80053; 81001; 83605; 84145; 85025; 96361; 96372; 96374; 96375; 96376; 99284; J1170; J2405; J7030